=== PATIENT | male | born 2000 | race Caucasian/White ===

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

== ENCOUNTER 2020-06-04 22:35 | Observation (INO) ==
[2020-06-04 23:08] LABS: Amorphous Sediment,Urine Few per hpf (None-Few); Bacteria,Urine Few per hpf (None-Few); Bilirubin,Urine Negative (Negative); Blood,Urine Negative (Negative); Clarity,Urine Clear (Clear); Color,Urine Yellow (Yellow); Glucose,Urine (UA) Normal (Normal); Ketones,Urine Negative (Negative); Leukocyte Esterase,Urine Negative (Negative); Mucus,Urine Few per lpf (None-Few); Nitrite,Urine Negative (Negative); Protein,Urine 30 mg/dL (Neg-Trace); RBC,Urine 0-3 per hpf (0-3); Specific Gravity,Urine > 1.030 (1.010-1.025); Squamous Epithelial Cell,Urine Few per hpf (None-Few); WBC,Urine 0-3 per hpf (0-3)
[2020-06-04 23:09] LABS: Basophils % 0.3 %; Eosinophils # 0.1 K/mcL (0.0-0.6); Eosinophils % 0.7 %; Hematocrit 44.2 % (37.5-50.1); Hemoglobin 14.8 g/dL (12.9-16.9); Immature Granulocytes % 0.5 % (0-4); Lymphocytes % 24.6 %; Mean Corpuscular HGB Conc 33.5 g/dL (31.6-35.5); Mean Corpuscular Volume 86.7 fL (83.0-100.0); Monocytes # 0.7 K/mcL (0.0-1.3); Monocytes % 5.6 %; Neutrophils # 8.3 K/mcL (1.6-8.9); Platelet Count 353 K/mcL (140-400); Red Cell Distribution Width 12.7 % (11.5-14.5); Segmented Neutrophils % 68.3 %; White Blood Count 12.1 K/mcL (4.3-11.1)
[2020-06-04 23:19] LABS: Amphetamine Screen,Urine Positive ng/mL (Cutoff=1000); Barbiturate Screen,Urine Negative ng/mL (Cutoff=200); Benzodiazepines Screen,Urine Negative ng/mL (Cutoff=200); Cannabinoid Screen,Urine Positive ng/mL (Cutoff = 50); Cocaine Screen,Urine Negative ng/mL (Cutoff= 300); Opiate Screen,Urine Negative ng/mL (Cutoff=300); Phencyclidine Screen,Urine Negative ng/mL (Cutoff=25)
[2020-06-04 23:27] LABS: Acetaminophen < 10 mcg/mL (10-20); Alanine Aminotransferase 24 Units/L (7-52); Albumin 4.7 g/dL (3.5-5.7); Albumin/Globulin Ratio 1.7 (1.1-2.2); Alkaline Phosphatase 101 Units/L (34-104); Aspartate Amino Transferase 21 Units/L (13-39); BUN/Creatinine Ratio 21 (6-26); Bilirubin,Direct 0.4 mg/dL (0.0-0.2); Bilirubin,Total 2.4 mg/dL (0.3-1.0); Blood Urea Nitrogen 18 mg/dL (6-20); Calcium 9.4 mg/dL (8.6-10.3); Carbon Dioxide 29 mEq/L (23-29); Chloride 101 mEq/L (98-107); Cholesterol 141 mg/dL (< 200); Estimated Average Glucose 108 mg/dl; Ethanol < 10 mg/dL (Less than 10); Globulin 2.8 g/dL (2.4-3.5); Glucose 83 mg/dL (70-105); HDL Cholesterol 47 mg/dL (40-59); Hemoglobin A1C 5.4 %; LDL Cholesterol,Calculated 81 mg/dL (< 100); Osmolality,Calculated 285 (280-300); Potassium 3.9 mEq/L (3.5-5.1); Salicylate < 2.5 mg/dL (15.0-30.0); Sodium 137 mEq/L (136-145); Total Protein 7.5 g/dL (6.4-8.9); Triglycerides 64 mg/dL (< 150); eGFR For African Americans > 60; eGFR For Non-African Americans > 60
[2020-06-05] MEDS ORDERED: Haloperidol Lactate 5 MG/ML VIAL IM ONE (01:35)
[2020-06-05] MEDS ORDERED: traZODone 50 MG TABLET PO PRN (01:48)
[2020-06-05] MEDS ORDERED: *HR* LORazepam 1 MG TABLET PO PRN (01:48)
[2020-06-05] MEDS ORDERED: Mag Hydrox/Al Hydrox/Simeth 30 ML UDC PO PRN (01:48)
[2020-06-05] MEDS ORDERED: MOM Conc 10 ML UD.LIQ PO PRN (01:48)
[2020-06-05] MEDS ORDERED: Acetaminophen 325 MG TABLET PO PRN (01:48)
[2020-06-05] MEDS ORDERED: Haloperidol Lactate 5 MG/ML VIAL IM PRN (01:48)
[2020-06-05] MEDS ORDERED: hydrOXYzine pamoate 25 MG CAPSULE PO PRN (01:48)
[2020-06-05] MEDS ORDERED: *HR* LORazepam 2 MG/ML VIAL IM PRN (01:48)
[2020-06-05] MEDS ORDERED: haloperidoL 5 MG TABLET PO PRN (01:48)
[2020-06-05 08:16] VITALS: BP 91/63
[2020-06-05] MEDS ORDERED: FLU Vac QV 20-21 (6Month+)/PF 0.5 ML SYRINGE IM ONE (12:33)
== END 2020-06-05 14:20 | disposition home or self-care (01) ==
LOC: 1ANU 22:35 → EMEROOARM 22:35 → 1ANU 06-05 08:05
PROVIDERS: ADMIT Psychiatry & Neurology Psychiatry; ATTEND Psychiatry & Neurology Psychiatry

== ENCOUNTER 2020-12-01 07:57 | Inpatient (IN) ==
[2020-12-01 08:21] LABS: Basophils # 0.1 K/mcL (0.0-0.2); Basophils % 0.5 %; Eosinophils # 0.2 K/mcL (0.0-0.6); Eosinophils % 1.4 %; Hematocrit 40.6 % (37.5-50.1); Hemoglobin 13.5 g/dL (12.9-16.9); Immature Granulocytes % 0.6 % (0-4); Lymphocytes # 2.1 K/mcL (0.6-4.6); Lymphocytes % 15.3 %; Mean Corpuscular HGB Conc 33.3 g/dL (31.6-35.5); Mean Corpuscular Hemoglobin 28.5 pg (28.0-33.3); Mean Corpuscular Volume 85.8 fL (83.0-100.0); Mean Platelet Volume 9.4 fL (9.4-12.4); Monocytes # 1.1 K/mcL (0.0-1.3); Monocytes % 7.9 %; Neutrophils # 10.2 K/mcL (1.6-8.9); Platelet Count 294 K/mcL (140-400); Red Blood Count 4.73 M/mcL (4.19-5.50); Red Cell Distribution Width 12.6 % (11.5-14.5); Segmented Neutrophils % 74.3 %; White Blood Count 13.7 K/mcL (4.3-11.1)
[2020-12-01 08:26] LABS: Estimated Average Glucose 103 mg/dl; Hemoglobin A1C 5.2 %
[2020-12-01 08:45] LABS: Acetaminophen < 10 mcg/mL (10-20); BUN/Creatinine Ratio 20 (6-26); Blood Urea Nitrogen 17 mg/dL (6-20); Calcium 9.5 mg/dL (8.6-10.3); Carbon Dioxide 24 mEq/L (23-29); Chloride 104 mEq/L (98-107); Chol/HDL Ratio 2.5 (0-4.9); Cholesterol 124 mg/dL (< 200); Ethanol < 10 mg/dL (Less than 10); Glucose 75 mg/dL (70-105); HDL Cholesterol 50 mg/dL (40-59); LDL Cholesterol,Calculated 60 mg/dL (< 100); Osmolality,Calculated 286 (280-300); Potassium 3.6 mEq/L (3.5-5.1); Salicylate < 2.5 mg/dL (15.0-30.0); Sodium 138 mEq/L (136-145); Triglycerides 68 mg/dL (< 150); eGFR For African Americans > 60 (> 60); eGFR For Non-African Americans > 60 (> 60)
[2020-12-01 08:53] LABS: Thyroid Stimulating Hormone 1.331 mcIU/mL (0.340-5.600)
[2020-12-01 09:40] LABS: Bacteria,Urine Few per hpf (None-Few); Bilirubin,Urine Negative (Negative); Blood,Urine Negative (Negative); Clarity,Urine Clear (Clear); Color,Urine Yellow (Yellow); Glucose,Urine (UA) Normal (Normal); Ketones,Urine 20 mg/dL (Negative); Leukocyte Esterase,Urine Negative (Negative); Mucus,Urine Few per lpf (None-Few); Nitrite,Urine Negative (Negative); Protein,Urine 30 mg/dL (Neg-Trace); Specific Gravity,Urine > 1.030 (1.010-1.025); WBC,Urine 0-3 per hpf (0-3)
[2020-12-01 10:00] LABS: Amphetamine Screen,Urine Positive ng/mL (Cutoff=1000); Barbiturate Screen,Urine Negative ng/mL (Cutoff=200); Benzodiazepines Screen,Urine Negative ng/mL (Cutoff=200); Cannabinoid Screen,Urine Negative ng/mL (Cutoff = 50); Cocaine Screen,Urine Negative ng/mL (Cutoff= 300); Opiate Screen,Urine Negative ng/mL (Cutoff=300); Phencyclidine Screen,Urine Negative ng/mL (Cutoff=25)
[2020-12-01 20:07] LABS: Influenza A PCR Negative (Negative); Influenza B PCR Negative (Negative); Resp. Syncytial Virus PCR Negative (Negative)
[2020-12-01 20:15] LABS: SARS-CoV-2 by PCR (In House) Negative (Negative)
[2020-12-01] MEDS ORDERED: *HR* LORazepam 1 MG TABLET PO PRN (21:23)
[2020-12-01] MEDS ORDERED: Haloperidol Lactate 5 MG/ML VIAL IM PRN (21:23)
[2020-12-01] MEDS ORDERED: hydrOXYzine pamoate 25 MG CAPSULE PO PRN (21:23)
[2020-12-01] MEDS ORDERED: haloperidoL 5 MG TABLET PO PRN (21:23)
[2020-12-01] MEDS ORDERED: *HR* LORazepam 2 MG/ML VIAL IM PRN (21:23)
[2020-12-01] MEDS ORDERED: Acetaminophen 325 MG TABLET PO PRN (21:23)
[2020-12-01] MEDS: QUEtiapine Fumarate 25 MG TABLET PO PRN (23:05)
[2020-12-01] MEDS: cephALEXin 500 MG CAPSULE PO SCH (23:05)
[2020-12-01] MEDS: OLANZapine 10 MG TAB.RAPDIS PO SCH (23:05)
[2020-12-02] MEDS: cephALEXin 500 MG CAPSULE PO SCH ×4 (10:09→21:53)
[2020-12-02] MEDS: OLANZapine 10 MG TAB.RAPDIS PO SCH (21:53)
[2020-12-03] MEDS: cephALEXin 500 MG CAPSULE PO SCH ×4 (09:37→21:33)
[2020-12-03] MEDS: OLANZapine 10 MG TAB.RAPDIS PO SCH (21:34)
[2020-12-04] MEDS: cephALEXin 500 MG CAPSULE PO SCH ×4 (10:20→20:47)
[2020-12-04] MEDS: OLANZapine 10 MG TAB.RAPDIS PO SCH (20:47)
[2020-12-04] MEDS: QUEtiapine Fumarate 25 MG TABLET PO PRN (20:49)
[2020-12-05] MEDS: cephALEXin 500 MG CAPSULE PO SCH ×4 (08:23→21:04)
[2020-12-05] MEDS: OLANZapine 10 MG TAB.RAPDIS PO SCH (21:04)
[2020-12-05] MEDS: QUEtiapine Fumarate 25 MG TABLET PO PRN (21:04)
[2020-12-06] MEDS: cephALEXin 500 MG CAPSULE PO SCH ×4 (09:08→20:31)
[2020-12-06] MEDS: OLANZapine 10 MG TAB.RAPDIS PO SCH (20:30)
[2020-12-06] MEDS: QUEtiapine Fumarate 25 MG TABLET PO PRN (20:30)
[2020-12-07] MEDS: cephALEXin 500 MG CAPSULE PO SCH (08:13)
[2020-12-07 09:10] VITALS: BP 106/76
== END 2020-12-07 12:50 | disposition home or self-care (01) | DRG 750 ==
LOC: EMEROOARM 07:57 → 1ANU 21:22
PROVIDERS: ADMIT Psychiatry & Neurology Forensic Psychiatry; ATTEND Psychiatry & Neurology Forensic Psychiatry